=== PATIENT | male | born 1995 | race Caucasian/White ===

== ENCOUNTER 2016-10-04 18:30 | Emergency (ER) | payer OTHER ==
[2016-10-04 18:43] VITALS: BMI 26.6
--- NOTE | 2016-10-04 19:50 | PDOC ---
History of Present Illness - General History Source: Patient Exam Limitations: No Limitations - History of Present Illness Initial Comments: 10/04/16 20:11 The patient is a 21 year old male, with no significant past medical history, who presents to the emergency department complaining of right sided groin pain. The patient reports that that the discomfort started a couple of weeks ago. He noticed this week that a lump appeared. He notes some mild scrotal pain. The patient is sexually active and in a monogamous relationship. Denies nausea, vomiting, fever, chills. Denies abdominal pain. Denies urinary changes. No hematuria. Allergies: none reported <Sangeetha Lamb - Last Filed: 10/04/16 21:59> <Ya Castano - Last Filed: 10/04/16 22:13> - General Chief Complaint: Pain Stated Complaint: ABD PAIN Time Seen by Provider: 10/04/16 18:57 Past History <Sangeetha Lamb - Last Filed: 10/04/16 21:59> - Past Medical History Other medical history: none - Surgical History Appendectomy: Yes - Immunization History Immunization Up to Date: Yes - Psycho/Social/Smoking Cessation Hx Anxiety: No Suicidal Ideation: No Smoking History: Never smoked Have you smoked in the past 12 months: No Number of Cigarettes Smoked Daily: 2 Cigars Per Day: 0 Information on smoking cessation initiated: No Hx Alcohol Use: No Drug/Substance Use Hx: No Substance Use Type: None <Ya Castano - Last Filed: 10/04/16 22:13> - Past Medical History Allergies/Adverse Reactions: Allergies Allergy/AdvReac Type Severity Reaction Status Date / Time No Known Allergies Allergy Verified 10/04/16 18:41 Home Medications: Ambulatory Orders NK [No Known Home Medication] 10/04/16 Review of Systems - Review of Systems Comments:: 10/04/16 20:11 CONSTITUTIONAL: Absent: fever, chills, diaphoresis, generalized weakness, malaise, loss of appetite HEENT: Absent: rhinorrhea, nasal congestion, throat pain, throat swelling, difficulty swallowing, mouth swelling, ear pain, eye pain, visual Changes CARDIOVASCULAR: Absent: chest pain, syncope, palpitations, irregular heart rate, lightheadedness , peripheral edema RESPIRATORY: Absent: cough, shortness of breath, dyspnea with exertion, orthopnea, wheezing, stridor, hemoptysis GASTROINTESTINAL: Absent: abdominal pain, abdominal distension, nausea, vomiting, diarrhea, constipation, melena, hematochezia GENITOURINARY: Present: right inguinal pain, mild scrotal pain Absent: dysuria, frequency, urgency, hesitancy, hematuria, flank pain, MUSCULOSKELETAL: Absent: myalgia, arthralgia, joint swelling SKIN: Absent: rash, itching, pallor HEMATOLOGIC/IMMUNOLOGIC: Absent: easy bleeding, easy bruising, lymphadenopathy, frequent infections ENDOCRINE: Absent: unexplained weight gain, unexplained weight loss, heat intolerance, cold intolerance NEUROLOGIC: Absent: headache, focal weakness or paresthesias, dizziness, unsteady gait, seizure, mental status changes, bladder or bowel incontinence PSYCHIATRIC: Absent: anxiety, depression, suicidal or homicidal ideation, hallucinations. <Ross Lambssica - Last Filed: 10/04/16 21:59> *Physical Exam - Vital Signs Last Vital Signs Temp Pulse Resp BP Pulse Ox 98.0 F 95 H 18 129/67 100 10/04/16 18:42 10/04/16 18:42 10/04/16 18:42 10/04/16 18:42 10/04/16 18:42 - Physical Exam Comments: 10/04/16 20:12 GENERAL: Well developed, well nourished. Awake and alert. In no acute distress. HEENT: Normocephalic, atraumatic. PERRLA, EOMI. No conjunctival pallor. Sclera are non- icteric. Moist mucous membranes. Oropharynx is clear. NECK: Supple. Full ROM. No JVD. Carotid pulses 2+ and symmetric, without bruits. No thyromegaly. No lymphadenopathy. CARDIOVASCULAR: Regular rate and rhythm. No murmurs, rubs, or gallops. Distal pulses are 2+ and symmetric. PULMONARY: No evidence of respiratory distress. Lungs clear to auscultation bilaterally. No wheezing, rales or rhonchi. ABDOMINAL: Soft. Non-tender. Non-distended. No rebound or guarding. No organomegaly. Normoactive bowel sounds. GENITAL: +2cm right inguinal lymph node that is palpable and tender MUSCULOSKELETAL: Normal range of motion at all joints. No bony deformities or tenderness. No CVA tenderness. EXTREMITIES: No cyanosis. No clubbing. No edema. No calf tenderness. SKIN: Warm and dry. Normal capillary refill. No rashes. No jaundice. NEUROLOGICAL: Alert, awake, appropriate. Cranial nerves 2-12 intact. No deficits to light touch and temperature in face, upper extremities and lower extremities. No motor deficits in the in face, upper extremities and lower extremities. Normoreflexic in the upper and lower extremities. Normal speech. Toes are downgoing bilaterally. Gait is normal without ataxia. PSYCHIATRIC: Cooperative. Good eye contact. Appropriate mood and affect. <Sangeetha Lamb - Last Filed: 10/04/16 21:59> - Vital Signs Last Vital Signs Temp Pulse Resp BP Pulse Ox 98.0 F 95 H 18 129/67 100 10/04/16 18:42 10/04/16 18:42 10/04/16 18:42 10/04/16 18:42 10/04/16 18:42 <Ya Castano - Last Filed: 10/04/16 22:13> ED Treatment Course - ADDITIONAL ORDERS Additional order review: Laboratory Results 10/04/16 19:50 Urine Color Yellow Urine Appearance Clear Urine pH 6.0 Ur Specific [place] 1.030 Urine Protein Negative Urine Glucose (UA) Negative Urine Ketones Negative Urine Blood Negative Urine Nitrite Negative Urine Bilirubin Negative Urine Urobilinogen Negative Ur Leukocyte Esterase Negative - RADIOLOGY Radiograph Interpretation: 10/04/16 22:00 EXAM: Scrotal ultrasound with duplex FINDINGS: The testicles are normal in size and echogenicity. There is symmetric flow to both testicles on Doppler evaluation. No intra or extratesticular masses 1 cm right epididymal cyst. The left epididymis is normal Small right hydrocele THIS DOCUMENT HAS BEEN ELECTRONICALLY SIGNED Vitor Valentin MD 10/04/2016 21:55 EST <Sangeetha Lamb - Last Filed: 10/04/16 21:59> Medical Decision Making - Medical Decision Making 10/04/16 22:05 21 yo male concerned with rt inguinal tenderness, small palpable lymph node -no abd pain -normal cremasteric reflex -c/o mild scrotal barnett.No erythema seen scrotal,testicular US: no torsion, no epidydimitis, small hydrocele UA no infection GC and chlamidia culture sent -pt did not want empiric antibiotics for STD IMP palable inguinal lymph node -pt told to followup with doctor if the lymph node persists - <Ya Castano - Last Filed: 10/04/16 22:13> *DC/Admit/Observation/Transfer - Attestations Scribe Attestion: 10/04/16 20:12 Documentation prepared by SONAM Begum, acting as medical record librarian for Ya Castano MD. <Sangeetha Lamb - Last Filed: 10/04/16 21:59> <Ya Castano - Last Filed: 10/04/16 22:13> Diagnosis at time of Disposition: Enlarged lymph node, Inguinal lymphadenopathy - Discharge Dispostion Disposition: HOME Condition at time of disposition: Stable - Patient Instructions Printed Discharge Instructions: DI for Hydrocele-Adult Additional Instructions: If the inguinal lymph node persists,please follow up with your doctor or be seen by the clinic at [address] [place] [address]
[2016-10-04 20:01] LABS: URINE APPEARANCE CLEAR; URINE BILIRUBIN NEGATIVE (NEGATIVE); URINE BLOOD NEGATIVE (NEGATIVE); URINE COLOR YELLOW; URINE GLUCOSE (UA) NEGATIVE (NEGATIVE); URINE KETONE NEGATIVE (NEGATIVE); URINE LEUK ESTERASE NEGATIVE (NEGATIVE); URINE NITRITE NEGATIVE (NEGATIVE); URINE PROTEIN NEGATIVE (NEGATIVE); URINE UROBILINOGEN NEGATIVE E.U./dl (0.2-1.0)
[2016-10-04 22:39] VITALS: BP 124/78; PULSE 80; TEMP 98.6
== END 2016-10-04 22:39 | disposition home or self-care (01) ==
LOC: JER 18:30
DX: R59.0 Localized enlarged lymph nodes (principal)
CPT/HCPCS: 36415; 76870-TC; 81003; 87491; 87591; 99282-25

== ENCOUNTER 2017-01-25 00:43 | Emergency (ER) | payer OTHER ==
[2017-01-25 01:03] VITALS: BP 124/74; PULSE 80; TEMP 98.7; BMI 25.4
[2017-01-25] MEDS ORDERED: IBUPROFEN 400 MG TABLET (FP) PO ONE ×2 (02:25→02:33)
[2017-01-25] MEDS ORDERED: traMADol HCL 50 MG TABLET PO ONE (02:25)
--- NOTE | 2017-01-25 02:31 | PDOC ---
History of Present Illness - General Chief Complaint: Pain, Acute Stated Complaint: LFT LEG INJURY Time Seen by Provider: 01/25/17 01:11 History Source: Patient Exam Limitations: No Limitations - History of Present Illness Initial Comments: 01/25/17 02:25 21yo Male patient with no significant past medical history presents to ED c/o left knee injury sustained while playing soccer. Patient states his cleats got stuck in the grass and he felt his knee popped. Patient reports swelling, pain, inability to ambulate normally. He denies any other complaints at this time. Occurred: reports: just prior to arrival Severity: Yes: moderate Lower Extremity Pain Location: left: knee Method of Injury: Yes: sports injury, twisted. No: unknown, assault, burn, direct blow, fell, incised, motor vehicle accident, other Modifying Factors: improves with: cold therapy. worse with: None, immobilization, pain medication, rest, other Associated Symptoms: Denies Lower Ext. Injury Location - Specific Injury Location Knees: right no evidence of injury, right normal range of motion, right non- tender, right normal inspection, left soft tissue tenderness, left bone tenderness, left swelling, left pain Extremity Pain Location - Extremity Pain Location Extremity Pain Locations: left: knee Past History - Travel Traveled outside of the country in the last 30 days: No Close contact w/someone who was outside of country & ill: No - Past Medical History Allergies/Adverse Reactions: Allergies Allergy/AdvReac Type Severity Reaction Status Date / Time No Known Allergies Allergy Verified 01/25/17 01:01 Home Medications: Ambulatory Orders Ibuprofen 600 mg PO Q6H PRN #20 tablet 01/25/17 Tramadol HCl 50 mg PO Q8H PRN #9 tablet MDD 3 tabs 01/25/17 - Surgical History Appendectomy: Yes - Immunization History Immunization Up to Date: Yes - Psycho/Social/Smoking Cessation Hx Anxiety: No Suicidal Ideation: No Smoking History: Never smoked Have you smoked in the past 12 months: No Number of Cigarettes Smoked Daily: 2 Cigars Per Day: 0 Information on smoking cessation initiated: No Hx Alcohol Use: No Drug/Substance Use Hx: No Substance Use Type: None Review of Systems - Review of Systems Able to Perform ROS?: Yes Is the patient limited Amharic proficient: No Musculoskeletal: Yes: Joint Pain, Joint Swelling All Other Systems: Reviewed and Negative *Physical Exam - Vital Signs Last Vital Signs Temp Pulse Resp BP Pulse Ox 98.7 F 80 20 124/74 97 01/25/17 01:01 01/25/17 01:01 01/25/17 01:01 01/25/17 01:01 01/25/17 01:01 - Physical Exam General Appearance: Yes: Nourished, Appropriately Dressed, Mild Distress. No: Apparent Distress, Moderate Distress, Severe Distress Respiratory/Chest: positive: Lungs Clear, Normal Breath Sounds. negative: Chest Tender, Respiratory Distress, Accessory Muscle Use, Labored Respiration, Rapid RR, Stridor, Wheezing Cardiovascular: positive: Regular Rhythm, Regular Rate. negative: JVD, Bradycardia, Tachycardia Musculoskeletal: positive: Normal Inspection. negative: CVA Tenderness, Decreased Range of Motion, Vertebral Tenderness Extremity: positive: Normal Capillary Refill, Tender (Left Knee), Swelling (Lt Knee). negative: Normal Inspection (Left Knee), Normal Range of Motion (Left Knee), Pedal Edema, Calf Tenderness, Erythema, Inflammation Integumentary: positive: Normal Color, Dry, Warm Neurologic: positive: modern and contemporary art curator II-XII NML intact, Fully Oriented, Alert, Normal Mood/ Affect, Normal Response, Motor Strength 5/5 *DC/Admit/Observation/Transfer Diagnosis at time of Disposition: Left knee sprain Qualifiers: Encounter type: initial encounter Involved ligament of knee: unspecified ligament Qualified Code(s): S83.92XA - Sprain of unspecified site of left knee, initial encounter - Discharge Dispostion Disposition: HOME Condition at time of disposition: Stable Admit: No - Prescriptions Prescriptions: Ibuprofen 600 mg PO Q6H PRN #20 tablet PRN Reason: Mild Pain Tramadol HCl 50 mg PO Q8H PRN #9 tablet MDD 3 tabs PRN Reason: Severe Pain - Referrals Referrals: Kirean Andre MD [Staff Physician] - - Patient Instructions Printed Discharge Instructions: DI for Knee Sprain, How to Use an Elastic Bandage-Knee Sprain Additional Instructions: No sports, gym, contact sports, physical activity until seen and cleared by your doctor or Orthopedist Dr. Andre. Take medications as prescribed. Motrin for mild pain. Tramadol for pain not relieved by Motrin. Apply Cold Compress to affected area every 2 hours for 20 mins on and off. Get plenty rest. Print Language: YAKUT - Post Discharge Activity Work/School Note: Back to Work
[2017-01-25] MEDS ORDERED: traMADol HCL 50 MG TABLET ONE (02:33)
== END 2017-01-25 02:53 | disposition home or self-care (01) ==
LOC: JER 00:43
DX: S83.92XA Sprain of unspecified site of left knee, initial encounter (principal); X50.1XXA Overexertion from prolonged static or awkward postures, initial encounter; Y93.66 Activity, soccer; Y92.322 Soccer field as the place of occurrence of the external cause; Y99.8 Other external cause status
CPT/HCPCS: 73562-TC-LT; 99283-25

== ENCOUNTER 2017-01-29 09:48 | Emergency (ER) | payer OTHER ==
[2017-01-29 10:03] VITALS: BP 132/78; PULSE 73; TEMP 97.8; BMI 25.1
--- NOTE | 2017-01-29 10:12 | PDOC ---
History of Present Illness - General Chief Complaint: Injury Stated Complaint: LEFT KNEE PAIN REVISIT Time Seen by Provider: 01/29/17 09:51 History Source: Patient, Old Records Exam Limitations: No Limitations - History of Present Illness Initial Comments: 01/29/17 10:12 21-year-old male with no past medical history presents with persistent left knee pain. Patient was here on January 25 for twisting his left knee while playing soccer. Had an x-ray at the time that was negative. Given the persistent pain, he came into the ED. Did not take any medications today. Denies numbness or weakness. Past History - Past Medical History Allergies/Adverse Reactions: Allergies Allergy/AdvReac Type Severity Reaction Status Date / Time No Known Allergies Allergy Verified 01/25/17 01:01 Home Medications: Ambulatory Orders Ibuprofen 600 mg PO Q6H PRN #20 tablet 01/25/17 Tramadol HCl 50 mg PO Q8H PRN #9 tablet MDD 3 tabs 01/25/17 Other medical history: LEFT COLATERAL LIGAMENT TEAR - Surgical History Appendectomy: Yes - Immunization History Immunization Up to Date: Yes - Psycho/Social/Smoking Cessation Hx Anxiety: No Suicidal Ideation: No Smoking History: Current every day smoker Have you smoked in the past 12 months: No Number of Cigarettes Smoked Daily: 2 Cigars Per Day: 0 Information on smoking cessation initiated: Yes 'Breaking Loose' booklet given: 01/29/17 Hx Alcohol Use: Yes (OCCASIONAL) Drug/Substance Use Hx: Yes (MARIJUANA) Substance Use Type: Marijuana Review of Systems - Review of Systems Able to Perform ROS?: Yes Comments:: 01/29/17 10:13 GENERAL/CONSTITUTIONAL: No fever, weakness. HEAD, EYES, EARS, NOSE AND THROAT: No change in vision. No ear pain or discharge. No sore throat. CARDIOVASCULAR: No chest pain or shortness of breath. RESPIRATORY: No cough, wheezing, or hemoptysis. GASTROINTESTINAL: No abdominal pain, nausea, vomiting, diarrhea, or decreased PO intolerance. GENITOURINARY: No dysuria, frequency, or change in urination. MUSCULOSKELETAL: +left knee pain. No neck or back pain. SKIN: No rash NEUROLOGIC: No headache, vertigo, loss of consciousness, or change in strength/ sensation. ENDOCRINE: No increased thirst. No abnormal weight change. HEMATOLOGIC/LYMPHATIC: No anemia, easy bleeding, or history of blood clots. ALLERGIC/IMMUNOLOGIC: No hives or skin allergy. *Physical Exam - Vital Signs Last Vital Signs Temp Pulse Resp BP Pulse Ox 97.8 F 73 15 132/78 100 01/29/17 09:49 01/29/17 09:49 01/29/17 09:49 01/29/17 09:49 01/29/17 09:49 - Physical Exam Comments: 01/29/17 10:13 GENERAL: Awake, alert, and fully oriented, in no acute distress. HEAD: No signs of trauma EYES: PERRLA, EOMI, sclera anicteric, conjunctiva clear ENT: Auricles normal inspection, hearing grossly normal, nares patent, oropharynx clear without exudates. EXTREMITIES: LLE: sensation intact throughout. negative anterior and posterior drawer test. Varus and valgus negative. TTP medial portion of knee. NEUROLOGICAL: Cranial nerves II through XII grossly intact. Normal speech. + antalgic gait secondary to left knee pain. SKIN: Warm, Dry, normal turgor, no rashes or lesions noted. Medical Decision Making - Medical Decision Making 01/29/17 10:14 Vital Signs Temp Pulse Resp BP Pulse Ox 97.8 F 73 15 132/78 100 01/29/17 09:49 01/29/17 09:49 01/29/17 09:49 01/29/17 09:49 01/29/17 09:49 I suspect the patient likely has a knee sprain or potential meniscal injury. Ambulate as tolerated. Rest, ice, compression, elevation. I expressed the importance of orthopedic follow-up would likely physical therapy or potential evaluation for surgery. Patient verbalizes understanding and will make the appointment. *DC/Admit/Observation/Transfer Diagnosis at time of Disposition: Left knee sprain Qualifiers: Encounter type: initial encounter Involved ligament of knee: unspecified ligament Qualified Code(s): S83.92XA - Sprain of unspecified site of left knee, initial encounter - Discharge Dispostion Disposition: HOME Condition at time of disposition: Good Admit: No - Referrals Referrals: Kieran Andre MD [Staff Physician] - - Patient Instructions Printed Discharge Instructions: DI for Knee Pain Additional Instructions: Please take 600 mg ibuprofen every 6 hours as needed for pain. It is very important that you elevate the leg, wear your brace and ice as needed. Make an appointment with orthopedics. Please call today to schedule an appointment. - Post Discharge Activity Work/School Note: Back to Work
== END 2017-01-29 10:17 | disposition home or self-care (01) ==
LOC: FER 09:48
PROC: 2W3RX1Z Immobilization of Left Lower Leg using Splint (ICD-10-PCS; principal; 2017-01-29)
DX: S83.92XA Sprain of unspecified site of left knee, initial encounter (principal); X58.XXXA Exposure to other specified factors, initial encounter; Y93.9 Activity, unspecified; Y92.9 Unspecified place or not applicable; Z72.0 Tobacco use
CPT/HCPCS: 29515; 99281-25

== ENCOUNTER 2017-03-18 10:39 | Day surgery (SDC) | payer OTHER ==
[2017-03-15 11:50] VITALS: BMI 25.1
[2017-03-18] MEDS ORDERED: MIDAZOLAM HCL 2 MG/2 ML SINGLE DOSE VIAL ONE (11:21)
[2017-03-18] MEDS ORDERED: DEXAMETHASONE SOD PHOSPHATE/PF 10 MG/ML SDV ONE ×2 (11:21→16:12)
[2017-03-18] MEDS ORDERED: BUPIVACAINE HCL/PF (5 MG/ML) 30 ML VIAL IJ ONE (11:22)
[2017-03-18] MEDS ORDERED: PROPOFOL 20 ML ONE ×2 (12:56)
[2017-03-18] MEDS ORDERED: oxyCODONE HCL 5 MG TABLET PO PRN (15:15)
[2017-03-18] MEDS ORDERED: LACTATED RINGERS SOLUTION 1,000 ML IV SCH (15:15)
[2017-03-18] MEDS ORDERED: HYDROmorphone HCL CARPU-JECT 1 MG/1 ML DISP.SYRIN ONE (15:57)
[2017-03-18] MEDS ORDERED: BUPIVACAINE HCL/PF 2.5 MG/ML - 30 ML VIAL IJ ONE (16:12)
[2017-03-18] MEDS ORDERED: HYDROmorphone HCL CARPU-JECT 1 MG/1 ML DISP.SYRIN IVPUSH ONE (16:28)
[2017-03-18] MEDS ORDERED: ONDANSETRON 4 MG/2 ML VIAL ONE ×2 (16:43→17:37)
[2017-03-18] MEDS: ONDANSETRON 4 MG/2 ML VIAL IVPUSH PRN ×2 (16:45→17:38)
--- NOTE | 2017-03-18 16:50 | OP ---
DATE OF OPERATION: 03/18/2017 PREOPERATIVE DIAGNOSIS: Above-knee anterior cruciate ligament rupture. POSTOPERATIVE DIAGNOSIS: Above-knee anterior cruciate ligament rupture. PROCEDURE: Left knee anterior cruciate ligament reconstruction utilizing hamstring autograft. SURGEON: Pj Painting MD INTERNATIONAL PROJECT MANAGER: ROCKY Gonzales, whose skillful assistance was necessary for the safe and timely performance of this procedure. Ms. Pinto was able to assist in limb positioning, driving the camera, graft harvest and preparation, as well as graft insertion and fixation. ANESTHESIA TYPE: Regional and general. POSTOPERATIVE CONDITION: Stable. COMPLICATIONS: Overtightening of initial button resulting in need for a replacement button. IMPLANTS: Arthrex TightRopes x2. INDICATIONS: This is a pleasant, 21-year-old gentleman who suffered a twisting injury to his knee. He was found to have an ACL rupture. Treatment options including nonoperative care versus operative management were discussed. Operative risks were reviewed in detail including bleeding, infection, neurovascular injury, need for further surgery, postoperative pain and stiffness, re-rupture, posttraumatic arthrosis, persistent instability. We discussed medical risks such as heart attack, stroke, DVT, PE, and . I reviewed the re-operative protocol. We discussed perioperative DVT and antibiotic prophylaxis. Patient voiced understanding and elected to proceed. DESCRIPTION OF PROCEDURE: Patient was brought to the operating room after administration of a regional block in the preoperative holding area. The left lower extremity was then prepped and draped in the usual sterile fashion following administration of general anesthetic. A preoperative dose of antibiotics was given, and the usual timeout procedure was performed. Preoperative examination demonstrated full range of motion of the knee, positive Saroj, stable collaterals, and stable PCL. At this point, given a positive pivot shift as well as positive Saroj, the decision was made to proceed with graft harvest. Incision was planned out just medial to the tibial crest over the pes tendons. The incision was carried down through skin to subcutaneous tissue. Blunt spreading was used to expose the sartorius fascia. The fascia was then split in line with the semitendinosus. A right angle clamp was used to retrieve the semitendinosus, and it was whip stitched. It was then elevated off the anterior surface of the tibia. As this was done, a portion of the gracilis was elevated as well. This was freed up at this time. Utilizing finger dissection, the semitendinosus was freed from the surrounding soft tissue. Any bands to the gastroc were lysed. The tendon stripper was then split over, and the tendon was retrieved out of the body. It was then prepared on the back table to a 9.5 x 69 mm graft. Concurrently, the arthroscopic portals both medial and lateral were now established. The arthroscope was then passed into the knee. Examination of the patellofemoral joint demonstrated no abnormalities. Passing the arthroscope down to the notch demonstrated the ruptured ACL. The rupture appeared to be mid-substance, and there was some scarred into the PCL. The arthroscope was then passed into the medial compartment. Here, a spinal needle was used to localize the portal, and then, this portal was established. The medial portion of the joint demonstrated no cartilage lesions. The meniscus was probed and found to be stable without tears. The arthroscope was now passed laterally. Here, the lateral compartment likewise demonstrated no significant pathology. There was some fraying noted throughout the base of the but no china tear. The arthroscope was now passed back into the notch. Utilizing electrocautery as well as a shaver, the notch was debrided of the ACL remnants. A femoral drill guide was now inserted onto the anatomic origin of the ACL. Utilizing a small incision distally and laterally in the thigh, the trocar was first bluntly spread and then inserted down to the level of the lateral femoral cortex. A FlipCutter device was drilled into the knee, and placement was confirmed. After satisfactory confirmation, FlipCutter was toggled, and a 9.5 x 30 mm socket was created. A passing suture was placed, and the hardware for drilling was removed. Attention was now turned to the tibial side. Here, the tibial drill guide was inserted into the anatomic footprint again. Again, the FlipCutter was drilled in, placement was verified, and then, a 30 mm x 9.5 mm socket was created here as well. A passing suture was placed, and the joint hardware was removed. The graft sutures were now loaded onto the femoral passing suture, and the sutures were passed through the femur. The button was toggled through and seated firmly onto the lateral femoral cortex. The graft was now toggled and into the femoral socket. However, upon making the turnaround into the femoral tunnel, it was somewhat held off. In freeing it up, the graft advanced further into the tunnel than was desired. The tibial sutures were now passed, and it was determined that not enough tissue was left on the tibial side to firmly secure the graft. Initially, the femoral incision was enlarged, and the button was tried to be passed back through the hole. However, this was unsuccessful. The decision was made to cut the TightRope. This was done. A passing suture was then again passed. A new suture button was loaded. The graft was again passed, this time to the desired level. The tibial side was now passed as well and then loaded onto the button and then toggled after cycling the knee several times. Utilizing a position of 25 degrees of flexion, both ends were tightened, securing the graft in place. A Saroj maneuver was performed, and the graft was found to be stable. At this point, the excess sutures were tied and then cut. The gracilis was sutured back into place. The deep tissue was approximated using 0 Vicryl. The subcutaneous tissue was approximated using 2-0 Vicryl. The skin was closed using 3-0 nylon. Sterile dressings were placed. It should be noted that the tourniquet was let down after 2 hours and 5 minutes, prior to the closure. The patient was transferred to recovery room in stable condition following extubation. Aisha [id number]
[2017-03-18 18:13] VITALS: TEMP 99.5
[2017-03-18] MEDS ORDERED: oxyCODONE HCL 5 MG TABLET ONE (18:17)
[2017-03-18 19:28] VITALS: BP 134/82; PULSE 96
== END 2017-03-18 19:29 | disposition home or self-care (01) ==
LOC: FASU 10:39
PROVIDERS: ATTEND Orthopaedic Surgery Sports Medicine
PROC: 0MUP47Z Supplement Left Knee Bursa and Ligament with Autologous Tissue Substitute, Percutaneous Endoscopic Approach (ICD-10-PCS; principal; 2017-03-18 12:56)
DX: S83.512A Sprain of anterior cruciate ligament of left knee, initial encounter (principal); X58.XXXA Exposure to other specified factors, initial encounter; Y93.9 Activity, unspecified; Y92.9 Unspecified place or not applicable
CPT/HCPCS: 94760